=== PATIENT | female | born 1955 | race Two or more races ===

== ENCOUNTER 2019-10-11 19:24 | Emergency (ER) | payer MEDICAID ==
[~2019-10-11] VITALS: Ht 167.6 cm; Wt 65.8 kg
--- NOTE | 2019-10-11 19:36 | NUR ---
PATIENT CAME TO ER BED 9 C/O RIGHT LOWER HIP PAIN RADIATING DOWN TO THE RLE. PT STATES THAT SHE WAS HELPING HER OFF THE TOILET WHEN SHE FELT SUDDEN SHARP PAIN SHOOTING DOWN FROM HER RIGHT HIP TO HER RIGHT LOWER EXTREMITIES. AAOX4. NO SOB. BREATHING EVENLY AND UNLABORED ON ROOM AIR. CONNECTED TO MONITOR.
[2019-10-11] MEDS ORDERED: ONDANSETRON 4 MG TAB.RAPDIS SL ONE (20:00)
[2019-10-11] MEDS ORDERED: MORPHINE SULFATE INJ 2 MG/ML DISP.SYRIN IM ONE (20:00)
[2019-10-11] MEDS ORDERED: DEXAMETHASONE SOD PHOSPHATE 4 MG/ML VIAL IM ONE (20:00)
[2019-10-11] MEDS ORDERED: MORPHINE SULFATE INJ 2 MG/ML DISP.SYRIN ONE (20:03)
[2019-10-11] MEDS ORDERED: DEXAMETHASONE SOD PHOSPHATE 10 MG/ML VIAL ONE (20:03)
[2019-10-11] MEDS ORDERED: ONDANSETRON 4 MG TAB.RAPDIS ONE (20:04)
--- NOTE | 2019-10-11 20:58 | NUR ---
Patient discharged to home in stable condition. Written and verbal after care instructions given. Patient verbalizes understanding of instruction.
[2019-10-11 20:59] VITALS: BP 123/72
--- NOTE | 2019-10-11 20:59 | NUR ---
PATIENT IS BEING PICKED UP BY HER DAUGHTER.
--- NOTE | 2019-10-11 20:59 | NUR ---
Patient is ambulatory with a steady gait.
== END 2019-10-11 20:59 | disposition home or self-care (01) ==
LOC: ER 19:28
DX: M54.41 Lumbago with sciatica, right side (principal); Z88.6 Allergy status to analgesic agent
CPT/HCPCS: 96372 ×2; 99284; J1100; J2270; Q0162

== ENCOUNTER 2019-10-12 13:57 | Emergency (ER) | payer MEDICAID ==
[~2019-10-12] VITALS: Ht 165.1 cm; Wt 66.2 kg
[2019-10-12 14:02] VITALS: BP 141/103
--- NOTE | 2019-10-12 14:25 | NUR ---
SEEN AND EXAMINED BY .
[2019-10-12] MEDS ORDERED: MORPHINE SULFATE INJ 4 MG/ML DISP.SYRIN IM ONE (14:30)
[2019-10-12] MEDS ORDERED: MORPHINE SULFATE INJ 4 MG/ML DISP.SYRIN ONE (14:32)
--- NOTE | 2019-10-12 14:47 | NUR ---
PT WHEELED TO CT SCAN VIA [employer].
--- NOTE | 2019-10-12 15:45 | NUR ---
Patient discharged to home in stable condition. Written and verbal after care instructions given. Patient verbalizes understanding of instruction.
== END 2019-10-12 15:46 | disposition home or self-care (01) ==
LOC: ER 14:03
DX: M54.41 Lumbago with sciatica, right side (principal); Z88.6 Allergy status to analgesic agent
CPT/HCPCS: 72131; 96372; 99284; J2270